=== PATIENT | female | born 2000 | race Caucasian/White ===

== ENCOUNTER 2018-08-16 20:30 | Emergency (ER) | payer OTHER ==
[2018-08-16] MEDS ORDERED: ONDANSETRON 4 MG/2 ML VIAL IVP ONE (20:50)
[2018-08-16] MEDS ORDERED: NS 1,000 ML IV ONE (20:50)
[2018-08-16] MEDS ORDERED: FAMOTIDINE 20 MG/2 ML SDV IVP ONE (20:50)
--- NOTE | 2018-08-16 21:07 | EDPHY ---
H & P Time Seen by Provider: 08/16/18 20:36 HPI/ROS: CHIEF COMPLAINT: Abdominal pain HISTORY OF PRESENT ILLNESS: Patient is a 17-year-old female sent here from urgent care [facility] for 3 days of worsening abdominal pain. She reports nausea and vomiting and loose stools/diarrhea for the last 3 days. She has decreased appetite today. She denies any fever. She denies or missed any periods. She denies dysuria. She has no history of abdominal surgeries. She points to her epigastrium a source of pain. REVIEW OF SYSTEMS: Constitutional: No fever, no chills. Eyes: No discharge. ENT: No sore throat. Cardiovascular: No chest pain, no palpitations. Respiratory: No cough, no shortness of breath. Gastrointestinal: + abdominal pain, no vomiting. Genitourinary: No hematuria. Musculoskeletal: No back pain. Skin: No rashes. Neurological: No headache. Smoking Status: Never smoked Physical Exam: General Appearance: Alert and no distress. Eyes: Pupils equal and round no injection. Respiratory: Chest is nontender, lungs are clear to auscultation. Cardiac: regular rate and rhythm. Gastrointestinal: Abdomen is soft and with significant tenderness to the right lower quadrant epigastrium but no peritoneal signs, no masses, bowel sounds normal. Musculoskeletal: Neck is supple and nontender. Extremities have full range of motion and are nontender. Skin: No rashes or lesions. Constitutional: Initial Vital Signs Temperature (C) 36.8 C 08/16/18 20:33 Heart Rate 72 08/16/18 20:33 Respiratory Rate 16 08/16/18 20:33 Blood Pressure 96/64 L 08/16/18 20:33 O2 Sat (%) 100 08/16/18 20:33 O2 Delivery Mode Room Air Allergies/Adverse Reactions: No Known Allergies Allergy (Unverified 08/16/18 20:35) Home Medications: Medication Instructions Recorded Ondansetron Odt [Zofran Odt 4 mg 4 mg PO Q8 #12 tab 08/16/18 (*)] Medical Decision Making - Diagnostics Imaging Results: Imaging Impressions Abdomen CT 08/16/18 20:47 Impression: 1. Nonvisualization of appendix. 2. No inflammatory process in the right lower quadrant. 3. Moderate amount of stool throughout the ascending colon and cecum. 4. Physiologic amount of free fluid in the cul-de-sac. Findings and recommendations discussed with Gustavo Richmond PA-C, at 10:00 p.m., on August 16, 2018. Final report concurs with initial preliminary interpretation. ED Course/Re-evaluation: 17-year-old female here with 3 days of abdominal pain. She mostly complained of epigastric pain but on exam she had right lower quadrant pain so CT scan was obtained. CT scan showed no acute intra-abdominal acute pathology. Labs were unremarkable. Urinalysis negative for UTI or infection or blood per S likely viral gastroenteritis. Patient be discharged with Zofran for nausea. Indications for return were discussed. She was referred for primary care follow -up. Differential Diagnosis: Appendicitis, bowel obstruction, and urinary tract infection, pyelonephritis, - Data Points Laboratory Results: Laboratory Results 08/16/18 21:02 08/16/18 21:20 08/16/18 08/16/18 08/16/18 21:20 21:20 21:10 WBC RBC Hgb POC Hgb 15.3 gm/dL gm/dL (12.6-16.3) Hct POC Hct 45 % % (38-47) MCV MCH MCHC RDW Plt Count MPV Neut % (Auto) Lymph % (Auto) Simpson % (Auto) Eos % (Auto) Baso % (Auto) Nucleat RBC Rel Count Absolute Neuts (auto) Absolute Lymphs (auto) Absolute Monos (auto) Absolute Eos (auto) Absolute Basos (auto) Absolute Nucleated RBC Immature Gran % Immature Gran # POC Sodium 144 mEq/L mEq/L (135-145) Sodium 143 mEq/L mEq/L (135-145) POC Potassium 3.7 mEq/L mEq/L (3.3-5.0) Potassium 4.1 mEq/L mEq/L (3.3-5.0) POC Chloride 107 mEq/L mEq/L (97-110) Chloride 106 mEq/L mEq/L (97-110) Carbon Dioxide 22 mEq/l mEq/l (22-31) Anion Gap 15 mEq/L mEq/L (8-16) POC BUN 17 mg/dL mg/dL (7-23) BUN 15 mg/dL mg/dL (7-23) Creatinine 0.7 mg/dL mg/dL (0.6-1.0) POC Creatinine 0.8 mg/dL mg/dL (0.6-1.0) Estimated GFR > 60 Glucose 82 mg/dL mg/dL (70-100) POC Glucose 79 mg/dL mg/dL (70-100) Calcium 9.9 mg/dL mg/dL (8.5-10.4) Total Bilirubin 0.4 mg/dL mg/dL (0.1-1.4) AST 29 IU/L IU/L (14-46) ALT 29 IU/L IU/L (9-52) Alkaline Phosphatase 73 IU/L IU/L (38-126) Total Protein 8.6 g/dL H g/dL (6.3-8.2) Albumin 5.0 g/dL g/dL (3.5-5.0) Lipase 116 IU/L IU/L (23-300) Beta HCG, Qual NEGATIVE Urine Color Urine Appearance Urine pH Ur Specific [place] Urine Protein Urine Ketones Urine Blood Urine Nitrate Urine Bilirubin Urine Urobilinogen Ur Leukocyte Esterase Urine Glucose 08/16/18 08/16/18 21:02 20:40 WBC 7.58 10^3/uL 10^3/uL (3.80-9.50) RBC 4.60 10^6/uL 10^6/uL (4.18-5.33) Hgb 14.0 g/dL g/dL (12.6-16.3) POC Hgb Hct 42.6 % % (38.0-47.0) POC Hct MCV 92.6 fL fL (81.5-99.8) MCH 30.4 pg pg (27.9-34.1) MCHC 32.9 g/dL g/dL (32.4-36.7) RDW 12.7 % % (11.5-15.2) Plt Count 235 10^3/uL 10^3/uL (150-400) MPV 11.9 fL H fL (8.7-11.7) Neut % (Auto) 49.2 % % (39.3-74.2) Lymph % (Auto) 40.4 % % (15.0-45.0) Simpson % (Auto) 7.1 % % (4.5-13.0) Eos % (Auto) 2.4 % % (0.6-7.6) Baso % (Auto) 0.8 % % (0.3-1.7) Nucleat RBC Rel Count 0.0 % % (0.0-0.2) Absolute Neuts (auto) 3.73 10^3/uL 10^3/uL (1.70-6.50) Absolute Lymphs (auto) 3.06 10^3/uL H 10^3/uL (1.00-3.00) Absolute Monos (auto) 0.54 10^3/uL 10^3/uL (0.30-0.80) Absolute Eos (auto) 0.18 10^3/uL 10^3/uL (0.03-0.40) Absolute Basos (auto) 0.06 10^3/uL 10^3/uL (0.02-0.10) Absolute Nucleated RBC 0.00 10^3/uL 10^3/uL (0-0.01) Immature Gran % 0.1 % % (0.0-1.1) Immature Gran # 0.01 10^3/uL 10^3/uL (0.00-0.10) POC Sodium Sodium POC Potassium Potassium POC Chloride Chloride Carbon Dioxide Anion Gap POC BUN BUN Creatinine POC Creatinine Estimated GFR Glucose POC Glucose Calcium Total Bilirubin AST ALT Alkaline Phosphatase Total Protein Albumin Lipase Beta HCG, Qual Urine Color COLORLESS Urine Appearance CLEAR Urine pH 7.0 (5.0-7.5) Ur Specific [place] 1.004 (1.002-1.030) Urine Protein NEGATIVE (NEGATIVE) Urine Ketones NEGATIVE (NEGATIVE) Urine Blood NEGATIVE (NEGATIVE) Urine Nitrate NEGATIVE (NEGATIVE) Urine Bilirubin NEGATIVE (NEGATIVE) Urine Urobilinogen NEGATIVE EU EU (0.2-1.0) Ur Leukocyte Esterase NEGATIVE (NEGATIVE) Urine Glucose NEGATIVE (NEGATIVE) Medications Given: Morphine Sulfate (Morphine) 2 mg IVP Q1H PRN PRN Reason: Pain, Severe Unable to Take PO Last Admin: 08/16/18 21:27 Dose: 2 mg Discontinued Medications Famotidine (Pepcid) 20 mg IVP EDNOW ONE Stop: 08/16/18 20:51 Last Admin: 08/16/18 21:24 Dose: 20 mg Sodium Chloride (Ns) 1,000 mls @ 0 mls/hr IV EDNOW ONE; Wide Open PRN Reason: Protocol Stop: 08/16/18 20:51 Last Admin: 08/16/18 21:27 Dose: 1,000 mls Ondansetron HCl (Zofran) 4 mg IVP ONCE ONE Stop: 08/16/18 20:51 Last Admin: 08/16/18 21:25 Dose: 4 mg Point of Care Test Results: Chemistry 08/16/18 21:10 POC Sodium 144 mEq/L mEq/L (135-145) POC Potassium 3.7 mEq/L mEq/L (3.3-5.0) POC Chloride 107 mEq/L mEq/L (97-110) POC BUN 17 mg/dL mg/dL (7-23) POC Creatinine 0.8 mg/dL mg/dL (0.6-1.0) POC Glucose 79 mg/dL mg/dL (70-100) ISTAT H&H 08/16/18 21:10 POC Hgb 15.3 gm/dL gm/dL (12.6-16.3) POC Hct 45 % % (38-47) Departure - Departure Disposition: Home, Routine, Self-Care Clinical Impression: Abdominal pain, Nausea and vomiting Condition: Good Instructions: Abdominal Pain (ED) Additional Instructions: Take Zofran as needed for nausea. He few developed worsening pain, fever or other worrisome symptoms return to the ER for further evaluation. If persistent symptoms please follow up with [facility] the next 2-3 days. Referrals: NONE *PRIMARY CARE P,. [Primary Care Provider] - As per Instructions [facility] [Clinic] - As per Instructions Prescriptions: Ondansetron Odt [Zofran Odt 4 mg (*)] 4 mg PO Q8 #12 tab
[2018-08-16 21:11] LABS: PLATELET COUNT 235 10^3/uL (150-400)
[2018-08-16] MEDS ORDERED: IOPAMIDOL (ISOVUE-300) 100 ML BTL ONE (21:20)
[2018-08-16] MEDS ORDERED: MAG HYDROX/AL HYDROX/SIMETH 30 ML UDCUP PO ONE (22:07)
[2018-08-16] MEDS ORDERED: LIDOCAINE 2% VISCOUS 15 ML UDCUP PO ONE (22:08)
[2018-08-16 22:26] VITALS: BP 96/51
== END 2018-08-16 22:41 | disposition home or self-care (01) ==
DX: R10.13 Epigastric pain (principal); R10.31 Right lower quadrant pain
CPT/HCPCS: 82435-PO; 82565-PO; 82947-PO; 84132-PO; 84295-PO; 84520-PO; 85014-PO; 96374; J2270; J2405; Q9967